=== PATIENT | male | born 1975 | race Caucasian/White ===

== ENCOUNTER 2024-02-04 15:25 | Outpatient (CLI) | payer BC ==
[2024-02-04 16:06] LABS: BASOPHILS % (AUTO) 0.7 % (0-1); EOSINOPHILS # (AUTO) 0.2 X10'3 (0-0.9); EOSINOPHILS % (AUTO) 3.6 % (0-6); HEMATOCRIT 51.2 % (42.0-52.0); HEMOGLOBIN 17.3 g/dl (14.0-17.9); LYMPHOCYTES # (AUTO) 2.1 X10'3 (1.1-4.8); LYMPHOCYTES % (AUTO) 30.8 % (21-51); MEAN CORPUSCULAR HEMOGLOBIN 32.7 PG (27.0-31.0); MEAN CORPUSCULAR HGB CONC 33.8 g/dL (33.0-36.5); MEAN CORPUSCULAR VOLUME 96.6 FL (78-98); MEAN PLATELET VOLUME 7.2 FL (7.4-10.4); MONOCYTES # (AUTO) 0.9 X10'3 (0-0.9); MONOCYTES % (AUTO) 13.2 % (2-12); NEUTROPHILS # (AUTO) 3.5 X10'3 (1.8-7.7); NEUTROPHILS % (AUTO) 51.7 % (42-75); PLATELET COUNT 244 X10'3 (140-440); RED CELL DISTRIBUTION WIDTH 13.2 % (11.5-14.5); WHITE BLOOD COUNT 6.8 X10'3 (4.5-11.0)
[2024-02-04 16:25] LABS: ALANINE AMINOTRANSFERASE 47 U/L (12-78); ALBUMIN 4.1 G/DL (3.4-5.0); ALKALINE PHOSPHATASE 57 IU/L (46-116); ANION GAP 8 (8-16); ASPARTATE AMINO TRANSFERASE 25 U/L (10-37); BILIRUBIN,TOTAL 0.6 MG/DL (0.1-1.0); BLOOD UREA NITROGEN 15 MG/DL (7-18); BUN/CREATININE RATIO 11.5 (10.0-20.0); CALCIUM 8.9 MG/DL (8.5-10.1); CHLORIDE 103 MMOL/L (99-107); GLUCOSE 100 MG/DL (70-104); SODIUM 142 MMOL/L (135-145); TOTAL CARBON DIOXIDE 30.8 MMOL/L (24-32); TOTAL PROTEIN 8.1 G/DL (6.4-8.2); eGFR 59 ML/MIN
== END 2024-02-04 23:59 | disposition home or self-care (01) ==
LOC: LAB 15:25
PROVIDERS: ATTEND Internal Medicine Endocrinology, Diabetes & Metabolism
DX: E29.1 Testicular hypofunction (principal)
CPT/HCPCS: 36415; 80053; 84402; 84403; 85025

== ENCOUNTER 2025-07-08 08:12 | Outpatient (CLI) | payer BC ==
[2025-07-08 08:41] LABS: LEUKOCYTE ESTERASE ,URINE NEGATIVE (Neg); NITRITES, URINE NEGATIVE (Neg); OCCULT BLOOD,URINE TRACE-INTACT (Neg)
[2025-07-08 08:46] LABS: UA COLLECTION TYPE CLN CATCH MIDSTREAM
[2025-07-08 08:53] LABS: MEAN PLATELET VOLUME 7.0 FL (7.4-10.4); RED CELL DISTRIBUTION WIDTH 13.3 % (11.5-14.5)
[2025-07-08 08:59] LABS: SQUAMOUS EPITHELIAL CELL,UR NONE SEEN /LPF (FEW)
[2025-07-08 09:39] LABS: CHOL/HDL RATIO 4.0 (0.00-4.99); CREATININE 1.14 MG/DL (0.60-1.10); LDL CHOLESTEROL 127 MG/DL (50-100); TOTAL CARBON DIOXIDE 31.1 MMOL/L (24-32); eGFR 69 ML/MIN
[2025-07-08 10:42] LABS: % IRON SATURATION 36 % (11-46)
[2025-07-09 11:12] LABS: % FREE PSA 26.0 % (.); PROSTATE SPECIFIC AG, SERUM 0.5 ng/mL (0.0-4.0); TESTOSTERONE, SERUM 477 ng/dL (264-916)
== END 2025-07-08 23:59 | disposition home or self-care (01) ==
LOC: LAB 08:12
PROVIDERS: ATTEND Family Medicine
DX: N40.1 Benign prostatic hyperplasia with lower urinary tract symptoms (principal); E78.5 Hyperlipidemia, unspecified; I10 Essential (primary) hypertension; L40.9 Psoriasis, unspecified; R53.82 Chronic fatigue, unspecified; R53.81 Other malaise
CPT/HCPCS: 36415; 80053; 80061; 81001; 82248; 82550; 82728; 83540; 83550; 84153; 84154; 84402; 84403; 84443; 85025; 86038; 86140

== ENCOUNTER 2025-07-12 12:29 | Emergency (ER) | payer BC ==
[~2025-07-12] VITALS: Ht 172.7 cm; Wt 168.0 kg
[2025-07-12 12:35] VITALS: TEMP 98.5
--- NOTE | 2025-07-12 12:39 | ELECTROCARDIOGRAPH REPORT ---
[facility] Test Date: 2025-07-12 Test Time: 12:33:57 Pat Name: MICHELLE LANDRY Department: EMERGENCY ROOM [id number] Room: Gender: M [place]: PM : 1975 Requested By: ALPESH GARZON Order Number: [id number] Reading MD: Dr. Alpesh Garzon Measurements Intervals [place] Rate: 92 P: 69 [place]: 134 QRS: 37 QRSD: 92 T: 31 QT: 338 QTc: 419 Interpretive Statements Sinus rhythm Probable left atrial enlargement Electronically Signed On 07-12-2025 12:41:[address] Alpesh Garzon Please click the below link to view image of tracing.
[2025-07-12 12:43] LABS: MEAN PLATELET VOLUME 7.0 FL (7.4-10.4); RED CELL DISTRIBUTION WIDTH 13.6 % (11.5-14.5)
[2025-07-12 12:56] LABS: INR 1.0 INR
[2025-07-12 13:07] LABS: CREATININE 1.13 MG/DL (0.60-1.10); PRO BRAIN NATRIURETIC PEPTIDE < 30 PG/ML (0-125); TOTAL CARBON DIOXIDE 30.7 MMOL/L (24-32); eCRCL 77 ML/MIN; eGFR 69 ML/MIN
--- NOTE | 2025-07-12 13:07 | RADIOLOGY REPORT ---
CHEST RADIOGRAPH Indication: CP Technique: Single frontal view of the chest was obtained COMPARISON: None FINDINGS: Lines and Tubes: None Lungs: Congestion Pleura: No effusion. No pneumothorax. Cardiomediastinal contours: Unremarkable Bones: Unremarkable IMPRESSION: Increased interstital prominence. This may represent pulmonary vascular congestion and/or viral pneum onia. Clinical correlation advised.
[2025-07-12 13:25] VITALS: BP 143/94; PULSE 69; RESP 16; O2SAT 97
--- NOTE | 2025-07-12 15:00 | Physician Documentation ---
History of Present Illness ~ Chief Complaint: Chest Pain Stated Complaint: CHEST PAIN Time Seen by MD: 14:33 HPI Patient is seen today with complaints of sudden onset of left-sided chest pain at rest while he was driving. Patient does admit to previous history of [place] around age 40 where he did have elevated tropes at that time. Patient states his chest pain has currently resolved now. However initially a few hours ago the chest pain started in his left side of his chest and began radiating up to his neck and pulsating dull achy pain into his left shoulder. Patient currently denies any shortness of breath or abdominal pain or chest pain or nausea, v omiting, diarrhea or diaphoresis. Patient has no other concern or complaint at this time. Medication Reconciliation Allergies: Coded Allergies: No Known Allergies (Unverified , 07/12/25) Review of Systems Constitutional: Denies: chills, fever, weakness Eyes: Denies: pain, blurred vision ENT: Denies: ear pain, nose pain, throat pain, mouth pain Respiratory: Denies: cough, shortness of breath Cardiovascular: Denies: chest pain, palpitations Gastrointestinal: Denies: abdominal pain, nausea, vomiting Genitourinary: Denies: burning, dysuria Male Genitalia: Denies: penile discharge, testicular pain Neurological: Denies: headache, dizziness Musculoskeletal: Denies: pain, swelling Integumentary: Denies: rash, lesions Allergic/Immunologic: Denies: hives, itching Hematologic/Lymphatic: Denies: no symptoms reported Psychiatric: Denies: depression, anxiety Physical Exam Vital Signs: Temperature: 98.5, Source: Temporal, Heart Rate: 69, Respiratory Rate: 16, BP: 143/94, Pulse Oximetry: 97, Weight: 168.000 Oxygen Flow Rate: 0 Physical Exam General: Awake and Alert, no acute distress. HEENT: Conjunctiva pink, Sclera clear, Mucus Membranes moist. Neck: Supple without masses and tenderness. Resp: Unlabored. Lungs clear to auscultation bilaterally. Heart: Regular Rate and rhythm, normal S1 and S2 without murmur, rub or gallop. Abdomen: Soft and non tender no organomegaly Extremities: No cyanosis,clubbing or edema. Skin: Warm and Dry. Progress Results/Orders Results/Orders Vital Signs 07/12/25 07/12/25 07/12/25 12:35 13:25 13:25 Temp 98.5 Pulse 94 69 Resp 16 16 B/P (MAP) 155/88 143/94 (110) Pulse Ox 99 97 O2 Flow Rate 0 0 Laboratory Tests Test 07/12/25 12:34 07/12/25 12:42 White Blood Count 6.8 Red Blood Count 5.39 Hemoglobin 17.2 Hematocrit 51.0 Mean Corpuscular Volume 94.7 Mean Corpuscular Hemoglobin 31.9 H Mean Corpuscular Hemoglobin Concent 33.7 Red Cell Distribution Width 13.6 Platelet Count 249 Mean Platelet Volume 7.0 L Neutrophils (%) (Auto) 50.5 Lymphocytes (%) (Auto) 35.8 Monocytes (%) (Auto) 10.9 Eosinophils (%) (Auto) 2.0 Basophils (%) (Auto) 0.8 Neutrophils # (Auto) 3.4 Lymphocytes # (Auto) 2.4 Monocytes # (Auto) 0.7 Eosinophils # (Auto) 0.1 Basophils # (Auto) 0.1 CBC Comment Sodium Level 141 Potassium Level 3.7 Chloride Level 102 Carbon Dioxide Level 30.7 Anion Gap 8 Blood Urea Nitrogen 10 Creatinine 1.13 H Estimated GFR/1.73 m2 69 BUN/Creatinine Ratio 8.8 L Glucose Level 85 Calcium Level 9.1 Troponin I High Sensitivity 4 Pro-B-Type Natriuretic Peptide < 30 Albumin 4.0 Chemistry Comments Prothrombin Time 10.2 INR International Normalized Ratio 1.0 Coagulation Comments EKG/XRAY/CT/US/VASC/MRI EKG : Additional Comment EKG interpreted by myself today shows regular rate at 92 beats per minute, normal sinus rhythm, no ST segment elevation or sign of ischemia no axis deviation. Chest X-Ray : Additional Comments Chest x-ray interpreted by myself today shows no large effusion, no large infiltrate, normal mediastinum, possible increased interstitial prominence DIAGNOSTIC RADIOLOGY Patient: MICHELLE LANDRY Medical Record: [id number] [facility] 1975, Age: 50 Sex: Male Location: ER Patient Status: REG ER Service Date/Time: 07/12/25/ 1257 Ordering Physician: ALPESH GARZON MD Exam: CHEST,SINGLE VIEW CHEST RADIOGRAPH Indication: CP Technique: Single frontal view of the chest was obtained COMPARISON: None FINDINGS: Lines and Tubes: None Lungs: Congestion Pleura: No effusion. No pneumothorax. Cardiomediastinal contours: Unremarkable Bones: Unremarkable IMPRESSION: Increased interstital prominence. This may represent pulmonary vascular congestion and/or viral pneumonia. Clinical correlation advised. Electronically Signed by:TATO OSEI MD Date & Time: 07/12/25 130 Dictated by: TATO OSEI MD Dictation date and time: 07/12/25 1304 Primary Care Provider: NO PRIMARY CARE PROVIDER cc: ALPESH GARZON MD ~ Heart Score: Heart Score Response (Comments) Value History Slightly Suspicious 0 EKG Normal 0 Age 45-64 1 Risk Factors 1 or 2 risk factors 1 Troponin Normal limit 0 Total 2 Medical Decision Making Findings Patient is seen today with complaints of sudden onset of left-sided chest pain at rest while he was driving. Patient does admit to previous history of [place] around age 40 where he did have elevated tropes at that time. Patient states his chest pain has currently resolved now. However initially a few hours ago the chest pain started in his left side of his chest and began radiating up to his neck and pulsating dull achy pain into his left shoulder. Patient currently denies any shortness of breath or abdominal pain or chest pain or nausea, vomiting, diarrhea or diaphoresis. Patient has no other concern or complaint at this time. Patient's heart score is two today. Patient's labs and EKG and chest x-ray were very reassuring. Patient will follow up with Cardiology for stress testing and for further consult. Patient will return to ED with any worsening, concerning or changing symptoms. Departure Disposition: 01 HOME / SELF CARE / HOMELESS Impression: Primary Impression: Chest pain Qualified Codes: R07.9 - Chest pain, unspecified Condition: Improved Discharge Instructions: Nonspecific Chest Pain, Adult Additional Instructions: Patient's heart score is two today. Patient's labs and EKG and chest x-ray were very reassuring. Patient will follow up with Cardiology for stress testing and for further consult. Patient will return to ED with any worsening, concerning or changing symptoms. Referrals: NO PRIMARY CARE PROVIDER (PCP) Signature Scribe Signature: No scribe Attestation: No scribe JAYCE BAILEY Jul 12, 2025 15:00
== END 2025-07-12 15:08 | disposition home or self-care (01) ==
LOC: ER 12:29
DX: R07.89 Other chest pain (principal); I25.2 Old myocardial infarction
CPT/HCPCS: 36415; 71045; 80048; 83880; 84484; 85025; 85610; 93005; 99285